=== PATIENT | female | born 1960 ===

== ENCOUNTER 2016-12-26 22:18 | Emergency (ER) | payer MEDICARE ==
--- NOTE | ~2016-12-26 | ER ---
PATIENT'S NAME: JORDEN MAN [facility] AGE: 56 Y [address] ROOM: [place] [id number] LOCATION: [facility] ADMIT DATE: 12/26/2016 ER/Outpatient Report DISCHARGE DATE: 12/27/2016 FAMILY PHYSICIAN: Blair De Luna MD ATTENDING PHYSICIAN: Sharon Mendez HISTORY OF PRESENT ILLNESS: This is a 56-year-old female who presents today with a chief complaint of lower abdominal pain. She has had it for 8 weeks. She says that currently it is a 5/10, but she feels it moving around this abdominal pain and sometimes it gets to be a 10/10. She denies any nausea, vomiting, or diarrhea. No fever or chills. No urinary frequency. No other complaints really. Says she has never had anything like this before. She did go see her primary care doctor Dr. De Luna about 2 weeks ago for this. They did an abdominal x-ray and thought that she was constipated; so, they had her drink some GoLYTELY. The patient says that she has been drinking and she has been having normal bowel movements now, but she still has this pain; so, she does not think it is that. No fever or chills. No other complaints. PAST MEDICAL HISTORY: Morbid obesity. PAST SURGICAL HISTORY: Cholecystectomy, appendectomy, lap band, partial tummy tuck, breast reduction, hiatal hernia repair, right ascending colectomy, TKA, and bilateral scope. SOCIAL HISTORY: She does not smoke, drink, or use any drugs. MEDICATIONS: Please see med list. ALLERGIES: PLEASE SEE MED LIST. REVIEW OF SYSTEMS: Reviewed by me and negative with the exception of those discussed in the HPI. PHYSICAL EXAMINATION: VITAL SIGNS: She is 5 feet, 6 inches, she weighs 131 kilos, blood pressure 132/70, heart rate 68, respiratory rate 16, temp is 98.5, and satting 98% on room air. GENERAL: The patient is in no acute distress. She is very pleasant, speaking in full sentences. She is morbidly obese. NEURO: She is A and O x4. She moves all extremities without any difficulty. PATIENT'S NAME: JORDEN MAN [facility] AGE: 56 Y [address] ROOM: [place], [place] [id number] LOCATION: [facility] ADMIT DATE: 12/26/2016 ER/Outpatient Report DISCHARGE DATE: 12/27/2016 FAMILY PHYSICIAN: Blair De Luna MD ATTENDING PHYSICIAN: Sharon Mendez GCS is 15. She is not lethargic. HEART: Rate is regular rate and rhythm. LUNGS: She is in no respiratory distress. ABDOMEN: She is obese. There are multiple scars on her abdomen. She is not distended, she has soft abdomen, no peritoneal signs. Normal bowel sounds. She is tender in the lower abdomen, right lower quadrant, left lower quadrant, and suprapubic area below the umbilicus. She has no upper abdominal pain. No right upper quadrant tenderness or left upper quadrant tenderness. No epigastric tenderness. She has no guarding or rebound. SKIN: Warm, dry, and intact. EMERGENCY ROOM COURSE: An IV was placed in this patient. We checked some blood work. The blood work shows a white count of 5.5, H and H is 13.8/43.2, and platelets are 202. No bandemia. CMS shows a sodium of 145, potassium is 3.9, chloride is 110, CO2 is 25, anion gap is 13.9, glucose is 107, BUN is 12, creatinine is 0.9, alk phos is 93, AST is 17, ALT is 19, and GFR is greater than 60. Procalcitonin is less than 0.05. Lactic acid is 1.7. CT of abdomen and pelvis with IV contrast was done for abdominal tenderness; so, the findings include a large hiatal hernia, which contains the stomach with the gastric lap band, that is in place; however, the tubing from the anterior abdominal wall reservoir has disconnected and is now located in the appendix. She also has some intermittent scattered lymph nodes and intermittent left adrenal nodule. We discussed this result with the patient. She says that she had the surgery done in [place] and would like to return there to talk to her surgeon to see if that can be repaired. I think this is a good idea that she should go back to the surgeon. She would not require emergency surgery right now as she has had this pain for 8 weeks and she has normal vital signs and normal lab work. We made a copy of all her labs and we put her imaging on a CD so she can bring it to her doctor for further management. She understands reasons to come back to the ER sooner. IMPRESSION: Disconnected lap band tubing in pelvis. MD NOMAN CARTWRIGHT/yessenia /[id number] d: 12/27/16 0346 t: 12/27/16 1811, OUTPATIENT REPORT
[2016-12-26 23:34] LABS: BASOPHIL % 0.7 %; EOSINOPHIL # 0.3 K/uL (0.0-0.5); EOSINOPHIL % 5.6 %; HEMATOCRIT 43.2 % (33.0-46.0); HEMOGLOBIN 13.8 g/dL (10.0-15.0); IMMATURE GRANULOCYTE % 0.4 %; LYMPHOCYTE # 1.7 K/uL (0.8-4.0); LYMPHOCYTE % 31.1 %; MCH 27.5 pg (27.0-34.0); MCHC 31.9 gm/dL (32.0-36.5); MCV 86.1 fl (83.0-98.0); MONOCYTE # 0.5 K/uL (0.0-1.0); MONOCYTE % 9.8 %; MPV 10.8 fl (9.4-12.4); NEUTROPHIL # (ANC) 2.9 K/uL (1.8-7.8); NEUTROPHIL % 52.4 %; NRBC % 0 /100WBC (0-0.00); PLATELET COUNT 202 K/uL (150-450); RBC 5.02 M/uL (3.50-5.50); RDW-CV 14.2 % (11.9-14.6); WBC 5.5 K/uL (4.0-11.0)
[2016-12-26 23:51] LABS: ALBUMIN 3.3 gm/dL (3.5-5.0); ALK PHOS 93 IU/L (33-138); ALT 19 IU/L (12-78); ANION GAP 13.9 (10.0-19.0); AST 17 IU/L (10-40); BLOOD UREA NITROGEN 12 mg/dL (6-24); CALCIUM 8.5 mg/dL (8.5-10.5); CHLORIDE 110 mMol/L (96-110); CO2 25 mMol/L (22-32); CREATININE 0.9 mg/dL (0.5-1.1); ESTIMATED GFR (MDRD EQUATION) > 60; POTASSIUM 3.9 mMol/L (3.7-5.1); SODIUM 145 mMol/L (135-145); TOTAL BILIRUBIN 0.3 mg/dL (0.0-1.5); TOTAL PROTEIN 6.6 g/dL (6.0-8.4)
== END 2016-12-27 01:06 | disposition disaster alternative care site (69) ==
LOC: GMED 22:18
PROVIDERS: Emergency Medicine
DX: K95.09 Other complications of gastric band procedure (principal); E66.01 Morbid (severe) obesity due to excess calories; Z79.899 Other long term (current) drug therapy; Z90.49 Acquired absence of other specified parts of digestive tract; Z98.890 Other specified postprocedural states; Z96.659 Presence of unspecified artificial knee joint; Z88.5 Allergy status to narcotic agent; Z88.6 Allergy status to analgesic agent; Z88.8 Allergy status to other drugs, medicaments and biological substances
CPT/HCPCS: Q9967

== ENCOUNTER → 2017-03-15 | Outpatient (CLI) | payer MEDICARE ==
[2017-03-15 17:52] LABS: MAGNESIUM 2.3 mg/dL (1.8-2.6); PHOSPHORUS 2.7 mg/dL (2.5-4.9)
== END ==
LOC: LFPA 11:19
PROVIDERS: Family Medicine
DX: E46 Unspecified protein-calorie malnutrition (principal); Z98.84 Bariatric surgery status